=== PATIENT | female | born 1965 | race Caucasian/White ===

== ENCOUNTER → 2017-01-31 | Outpatient (CLI) | payer OTHER ==
[~2017-01-31] MED LIST: ATIVAN0.5 MG PO; EFFEXOR75 MG PO; ULTRAM50 MG PO; VENLAFAXINE HCL75 M3 PO; ZOLPIDEM TARTRA10 MG PO
== END | disposition home or self-care (01) ==
LOC: OPR 09:50 → EDSTATUS 10:00 → OPR 10:00
PROVIDERS: Internal Medicine Hematology & Oncology
PROC: 0DBS3ZX (ICD-10-PCS; principal; 2017-01-31)
DX: C78.6 Secondary malignant neoplasm of retroperitoneum and peritoneum (principal); C34.90 Malignant neoplasm of unspecified part of unspecified bronchus or lung
CPT/HCPCS: 77012; 85610; 85730; 88184 90; 88185 90; 88189 90; 88305; 88341 TC; 88342 TC; J3010

== ENCOUNTER → 2017-03-01 | Outpatient (CLI) | payer OTHER ==
[~2017-03-01] VITALS: Ht 172.7 cm; Wt 60.9 kg
[~2017-03-01] MED LIST changes: +ALIMTA500 MG/20 IV; +PARAPLATIN IV
[2017-03-01 15:36] VITALS: BP 178/85
[2017-03-01 15:38] LABS: HEMATOCRIT 41.3 % (36.0-46.0); MCH 28.2 PG (29.0-34.0); MCHC 32.4 G/DL (30.0-36.0); MCV 86.8 FL (83-99); MEAN PLAT.VOLUME 8.6 uM^3 (9.5-12.4); PLATELET COUNT 461 K/uL (156-360); RBC DIS.WIDTH-CV 12.8 % (11.8-14.6); RBC DIS.WIDTH-SD 40.1 % (39-53); RED BLOOD COUNT 4.76 M/uL (3.80-5.20)
[2017-03-01 15:44] LABS: WHITE BLOOD COUNT 29.5 K/uL (4.1-10.2)
[2017-03-01 15:50] LABS: ANION GAP 11 MEQ/L (2-14); CHLORIDE 99 MEQ/L (99-109); POTASSIUM 3.9 MEQ/L (3.7-5.4); SAMPLE HEMOLYSIS CHECK 0; SAMPLE ICTERIC CHECK 0; SAMPLE LIPEMIA CHECK 0; SODIUM 135 MEQ/L (136-147)
[2017-03-01 15:55] LABS: GFR ESTIMATE (CALCULATED) > 59 mL/min/; GLUCOSE 118 mg/dL (70-99); UREA NITROGEN (BUN) 15 mg/dL (9-23)
[2017-03-01 17:39] VITALS: BP 127/74
== END | disposition home or self-care (01) ==
LOC: IVINF 15:00
PROVIDERS: Internal Medicine
DX: R11.2 Nausea with vomiting, unspecified (principal); Z92.21 Personal history of antineoplastic chemotherapy
CPT/HCPCS: 80048; 85027; 96361; 96375; J2765; J7030

== ENCOUNTER 2017-06-08 15:07 | Emergency (ER) | payer OTHER ==
[~2017-06-08] VITALS: Ht 172.7 cm; Wt 50.4 kg
[~2017-06-08 15:07] MED LIST changes: +COLACE100 MG PO; +COMPAZINE10 MG PO; +CONSTULOSE10 GM/15 M PO; +FOLIC ACID0.8 MG PO; +MS CONTIN,ORAMO30 MG PO; +OMEPRAZOLE20 MG PO; +PERCOCET 5/31 TABLET PO; +REGLAN10 MG PO; +VITAMIN B122500 MCG PO; +[UNRECOGNIZED DRUG - OTHER]
[2017-06-08 15:34] LABS: HEMATOCRIT 39.9 % (36.0-46.0); MCH 29.4 PG (29.0-34.0); MCHC 31.6 G/DL (30.0-36.0); MCV 93.2 FL (83-99); MEAN PLAT.VOLUME 9.1 uM^3 (9.5-12.4); PLATELET COUNT 412 K/uL (156-360); RBC DIS.WIDTH-SD 55.2 % (39-53); RED BLOOD COUNT 4.28 M/uL (3.80-5.20); WHITE BLOOD COUNT 8.7 K/uL (4.1-10.2)
[2017-06-08 15:48] LABS: CHLORIDE 106 mEq/L (99-109); POTASSIUM 3.5 mEq/L (3.7-5.4); SODIUM 140 mEq/L (136-147)
[2017-06-08 15:49] LABS: GLUCOSE 89 mg/dL (70-99)
[2017-06-08 15:51] LABS: ANION GAP 9 MEQ/L (2-14)
[2017-06-08 15:53] LABS: GFR ESTIMATE (CALCULATED) > 59 mL/min/
[2017-06-08 15:54] LABS: TROP-I INTERPRETATION NEGATIVE; TROPONIN-I < 0.01 ng/mL (0.0-0.30); UREA NITROGEN (BUN) 12 mg/dL (9-23)
[2017-06-08 21:30] VITALS: BP 158/103
== END 2017-06-08 21:38 | disposition home or self-care (01) ==
LOC: EME 15:07
DX: C34.90 Malignant neoplasm of unspecified part of unspecified bronchus or lung (principal); C79.51 Secondary malignant neoplasm of bone; R06.02 Shortness of breath; R51 Headache; R53.1 Weakness; R04.0 Epistaxis; R00.0 Tachycardia, unspecified
CPT/HCPCS: 71275; 80048; 84484; 85027; 93005; 99281; 99285; J2270; J7030

== ENCOUNTER 2017-07-07 12:43 | Emergency (ER) | payer OTHER ==
[~2017-07-07] VITALS: Ht 172.7 cm; Wt 49.4 kg
[2017-07-07 14:41] LABS: HEMATOCRIT 37.8 % (36.0-46.0); MCH 29.2 PG (29.0-34.0); MCV 91.3 FL (83-99); MEAN PLAT.VOLUME 9.2 uM^3 (9.5-12.4); PLATELET COUNT 406 K/uL (156-360); RBC DIS.WIDTH-CV 13.2 % (11.8-14.6); RBC DIS.WIDTH-SD 44.8 % (39-53); RED BLOOD COUNT 4.14 M/uL (3.80-5.20); WHITE BLOOD COUNT 9.7 K/uL (4.1-10.2)
[2017-07-07 14:50] LABS: CHLORIDE 106 mEq/L (99-109); POTASSIUM 4.3 mEq/L (3.7-5.4); SODIUM 139 mEq/L (136-147)
[2017-07-07 14:52] LABS: GLUCOSE 97 mg/dL (70-99)
[2017-07-07 14:53] LABS: ANION GAP 10 MEQ/L (2-14)
[2017-07-07 14:55] LABS: GFR ESTIMATE (CALCULATED) > 59 mL/min/
[2017-07-07 14:56] LABS: UREA NITROGEN (BUN) 14 mg/dL (9-23)
[2017-07-07 15:36] LABS: QUANTITATIVE HCG < 4.0 MIU/ML
[2017-07-07 17:40] LABS: ADD MIUA? NO; BILIRUBIN NEGATIVE; BLOOD NEGATIVE; COLOR STRAW ((YELLOW)); GLUCOSE (STRIP) NEGATIVE; KETONES 80; LEUKOCYTES NEGATIVE; NITRITE NEGATIVE; PROTEIN (STRIP) 30; UCUL ADDED? NO; UROBILINOGEN 0.2 MG/DL (0.2-1.0)
[2017-07-07] MEDS ORDERED: REGLAN10 MG PO (18:05)
[2017-07-07 18:47] VITALS: BP 165/98
[2017-07-09] MEDS ORDERED: VENLAFAXINE HCL75 M1 PO (17:39)
[2017-07-09] MEDS ORDERED: ATIVAN0.5 MG PO (17:39)
[2017-07-09] MEDS ORDERED: [UNRECOGNIZED DRUG - OTHER] PO (17:41)
[2017-07-09] MEDS ORDERED: ZOMETA 4 M4 MG/100 M IV (17:44)
[2017-07-09] MEDS ORDERED: TOPROL XL25 MG PO (17:52)
[2017-07-10] MEDS ORDERED: MS CONTIN,ORAMO30 MG PO (16:09)
== END 2017-07-07 18:49 | disposition home or self-care (01) ==
LOC: EME 12:43
PROVIDERS: Emergency Medicine
DX: R11.10 Vomiting, unspecified (principal); C34.90 Malignant neoplasm of unspecified part of unspecified bronchus or lung; C79.9 Secondary malignant neoplasm of unspecified site; Z79.899 Other long term (current) drug therapy
CPT/HCPCS: 74177; 80048; 81003; 84702; 85027; 86850; 86900; 86901; 93005; 99281; 99284; J2270; J2405; J7030

== ENCOUNTER → 2017-07-11 | Outpatient (CLI) | payer OTHER ==
[~2017-07-11] VITALS: Ht 172.7 cm; Wt 49.9 kg
[~2017-07-11] MED LIST changes: +ROXICODONE5 MG PO; +TOPROL XL25 MG PO; +VENLAFAXINE HCL75 M1 PO; +ZOMETA 4 M4 MG/100 M IV; +[UNRECOGNIZED DRUG - OTHER] PO
== END | disposition home or self-care (01) ==
LOC: AMB 12:59
PROC: 0DJ08ZZ Inspection of Upper Intestinal Tract, Via Natural or Artificial Opening Endoscopic (ICD-10-PCS; principal; 2017-07-11)
DX: R11.10 Vomiting, unspecified (principal); C34.90 Malignant neoplasm of unspecified part of unspecified bronchus or lung; C79.9 Secondary malignant neoplasm of unspecified site; Z92.21 Personal history of antineoplastic chemotherapy; I10 Essential (primary) hypertension; K21.9 Gastro-esophageal reflux disease without esophagitis; F41.9 Anxiety disorder, unspecified; F32.9 Major depressive disorder, single episode, unspecified

== ENCOUNTER 2017-07-26 08:43 | Observation (INO) | payer OTHER ==
[~2017-07-26] VITALS: Ht 172.7 cm; Wt 45.7 kg
[~2017-07-26 08:43] MED LIST changes: +ALA-CORT30 GM TP; +ATARAX,VISTARIL25 MG PO; +CEPHALEXIN500 MG PO; +CLINDAGEL40 ML TP; +DOXYCYCLINE HY100 MG PO; +KENALOG,ARISTOC80 GM TP
[2017-07-26 09:42] LABS: HEMATOCRIT 39.8 % (36.0-46.0); MCH 28.1 PG (29.0-34.0); MCHC 32.7 G/DL (30.0-36.0); MCV 86.1 FL (83-99); MEAN PLAT.VOLUME 10.3 uM^3 (9.5-12.4); PLATELET COUNT 459 K/uL (156-360); RBC DIS.WIDTH-CV 13.5 % (11.8-14.6); RBC DIS.WIDTH-SD 42.4 % (39-53); RED BLOOD COUNT 4.62 M/uL (3.80-5.20); WHITE BLOOD COUNT 12.4 K/uL (4.1-10.2)
[2017-07-26 10:29] LABS: ADD MIUA? YES; BILIRUBIN NEGATIVE; BLOOD SMALL; COLOR AMBER ((YELLOW)); GLUCOSE (STRIP) NEGATIVE; KETONES 20; LEUKOCYTES SMALL; NITRITE NEGATIVE; PROTEIN (STRIP) 100; SPECIFIC GRAVITY 1.027 (1.000-1.030)
[2017-07-26 10:35] LABS: CHLORIDE 104 mEq/L (99-109); POTASSIUM 3.7 mEq/L (3.7-5.4); SODIUM 139 mEq/L (136-147)
[2017-07-26 10:37] LABS: GLUCOSE 107 mg/dL (70-99)
[2017-07-26 10:38] LABS: ANION GAP 11 MEQ/L (2-14)
[2017-07-26 10:39] LABS: TOTAL BILIRUBIN 0.3 mg/dL (0.0-1.0)
[2017-07-26 10:40] LABS: ALKALINE PHOSPHATASE 721 IU/L (3-129)
[2017-07-26 10:41] LABS: GFR ESTIMATE (CALCULATED) > 59 mL/min/
[2017-07-26 10:42] LABS: DIRECT BILIRUBIN 0.2 mg/dL (0.0-0.3); UREA NITROGEN (BUN) 17 mg/dL (9-23)
[2017-07-26 10:43] LABS: BACTERIA NONE SEEN /HPF; EPITHELIAL CELLS 1+ /HPF; MUCUS 3+ /LPF; UCUL ADDED? YES; UNCLASSIFIED CRYSTALS 1+ /HPF
[2017-07-26 10:44] LABS: LIPASE 58 U/L (1.0-51.0)
[2017-07-26 12:43] VITALS: BP 177/103
[2017-07-26 20:01] VITALS: BP 145/78
[2017-07-26 21:51] LABS: HEMATOCRIT 33.7 % (36.0-46.0); MCV 89.6 FL (83-99)
[2017-07-27] VITALS (8 sets, daily range): BP systolic 125–162; BP diastolic 74–108
[2017-07-27 05:31] LABS: HEMATOCRIT 33.6 % (36.0-46.0); MCH 28.8 PG (29.0-34.0); MCHC 31.5 G/DL (30.0-36.0); MCV 91.3 FL (83-99); MEAN PLAT.VOLUME 8.8 uM^3 (9.5-12.4); PLATELET COUNT 420 K/uL (156-360); RBC DIS.WIDTH-CV 13.5 % (11.8-14.6); RBC DIS.WIDTH-SD 45.2 % (39-53); WHITE BLOOD COUNT 10.6 K/uL (4.1-10.2)
[2017-07-27 05:58] LABS: ANION GAP 5 MEQ/L (2-14); CHLORIDE 109 MEQ/L (99-109); GFR ESTIMATE (CALCULATED) > 59 mL/min/; GLUCOSE 105 mg/dL (70-99); POTASSIUM 4.1 MEQ/L (3.7-5.4); SAMPLE HEMOLYSIS CHECK 0; SAMPLE ICTERIC CHECK 0; SAMPLE LIPEMIA CHECK 0; SODIUM 140 MEQ/L (136-147); UREA NITROGEN (BUN) 12 mg/dL (9-23)
[2017-07-27 06:18] LABS: RED BLOOD COUNT 3.68 M/uL (3.80-5.20)
[2017-07-28 04:20] VITALS: BP 148/75
[2017-07-28] MEDS ORDERED: PHENERGAN12.5 MG PR (09:46)
[2017-07-28] MEDS ORDERED: BENTYL20 MG PO (09:46)
== END 2017-07-28 12:15 | disposition home or self-care (01) ==
LOC: EME 08:43 → EDOF 11:00 → 5WEST 11:00 → EDOF 11:00 → ENRESERV 11:05 → 5WEST 12:11 → ENPENDDIS 07-28 → 5WEST 07-28 12:15
PROVIDERS: Emergency Medicine; Internal Medicine
DX: E86.0 Dehydration (principal); R11.2 Nausea with vomiting, unspecified; C34.90 Malignant neoplasm of unspecified part of unspecified bronchus or lung; C79.49 Secondary malignant neoplasm of other parts of nervous system; C79.51 Secondary malignant neoplasm of bone; C78.6 Secondary malignant neoplasm of retroperitoneum and peritoneum; L27.0 Generalized skin eruption due to drugs and medicaments taken internally; T45.1X5A Adverse effect of antineoplastic and immunosuppressive drugs, initial encounter; B95.61 Methicillin susceptible Staphylococcus aureus infection as the cause of diseases classified elsewhere; R50.9 Fever, unspecified; Z92.21 Personal history of antineoplastic chemotherapy; N39.0 Urinary tract infection, site not specified; I10 Essential (primary) hypertension; G89.3 Neoplasm related pain (acute) (chronic)
CPT/HCPCS: 80048; 80076; 81003; 83605; 83690; 85014; 85018; 85027; 87040; 87086; 93005; 99281; 99284; C9113; G0378; J0360; J0690; J1170; J1650; J2270; J2405; J2765; J7030; J7050; Q0167; Q0177

== ENCOUNTER 2017-07-29 18:52 | Inpatient (IN) | payer OTHER ==
[~2017-07-29] VITALS: Ht 172.7 cm; Wt 47.9 kg
[~2017-07-29 18:52] MED LIST changes: +BENTYL20 MG PO; +PHENERGAN12.5 MG PR
[2017-07-29 19:32] LABS: HEMATOCRIT 38.2 % (36.0-46.0); MCH 27.3 PG (29.0-34.0); MCHC 31.4 G/DL (30.0-36.0); MCV 86.8 FL (83-99); MEAN PLAT.VOLUME 8.9 uM^3 (9.5-12.4); PLATELET COUNT 561 K/uL (156-360); RBC DIS.WIDTH-CV 13.3 % (11.8-14.6); RBC DIS.WIDTH-SD 42.4 % (39-53); WHITE BLOOD COUNT 11.6 K/uL (4.1-10.2)
[2017-07-29 19:38] LABS: CHLORIDE 101 mEq/L (99-109); POTASSIUM 3.5 mEq/L (3.7-5.4); SODIUM 137 mEq/L (136-147)
[2017-07-29 19:40] LABS: GLUCOSE 107 mg/dL (70-99)
[2017-07-29 19:42] LABS: ANION GAP 11 MEQ/L (2-14)
[2017-07-29 19:44] LABS: ALKALINE PHOSPHATASE 772 IU/L (3-129); GFR ESTIMATE (CALCULATED) > 59 mL/min/
[2017-07-29 19:45] LABS: UREA NITROGEN (BUN) 10 mg/dL (9-23)
[2017-07-29 19:46] LABS: TOTAL BILIRUBIN 0.5 mg/dL (0.0-1.0)
[2017-07-29 19:55] LABS: QUANTITATIVE HCG < 4.0 MIU/ML
[2017-07-29 21:18] LABS: LIPASE 61 U/L (1.0-51.0)
[2017-07-30 00:06] LABS: ADD MIUA? NO; BILIRUBIN NEGATIVE; BLOOD NEGATIVE; COLOR STRAW ((YELLOW)); GLUCOSE (STRIP) NEGATIVE; KETONES 20; LEUKOCYTES NEGATIVE; NITRITE NEGATIVE; PROTEIN (STRIP) NEGATIVE; SPECIFIC GRAVITY 1.031 (1.000-1.030); UCUL ADDED? NO; UROBILINOGEN 0.2 MG/DL (0.2-1.0)
[2017-07-30 01:25] VITALS: BP 184/104
[2017-07-30 04:20] VITALS: BP 168/92
[2017-07-30 05:13] LABS: HEMATOCRIT 31.3 % (36.0-46.0); MCH 28.7 PG (29.0-34.0); MCHC 32.3 G/DL (30.0-36.0); MCV 88.9 FL (83-99); MEAN PLAT.VOLUME 8.7 uM^3 (9.5-12.4); PLATELET COUNT 395 K/uL (156-360); RBC DIS.WIDTH-CV 13.6 % (11.8-14.6); RBC DIS.WIDTH-SD 43.8 % (39-53); RED BLOOD COUNT 3.52 M/uL (3.80-5.20); WHITE BLOOD COUNT 9.9 K/uL (4.1-10.2)
[2017-07-30 06:24] LABS: ALKALINE PHOSPHATASE 570 IU/L (3-129); ANION GAP 9 MEQ/L (2-14); CHLORIDE 101 MEQ/L (99-109); GFR ESTIMATE (CALCULATED) > 59 mL/min/; GLUCOSE 90 mg/dL (70-99); POTASSIUM 3.7 MEQ/L (3.7-5.4); SAMPLE HEMOLYSIS CHECK 0; SAMPLE ICTERIC CHECK 0; SAMPLE LIPEMIA CHECK 0; SODIUM 136 MEQ/L (136-147); TOTAL BILIRUBIN 0.4 MG/DL (0.0-1.0); UREA NITROGEN (BUN) 8 mg/dL (9-23)
[2017-07-30 07:20] VITALS: BP 164/86
[2017-07-30] MEDS ORDERED: DRONABINOL2.5 MG PO (09:48)
[2017-07-30] MEDS ORDERED: ONE DAILY MULT1 EACH PO (09:48)
[2017-07-30] MEDS ORDERED: REGLAN10 MG PO (09:48)
[2017-07-30 11:58] VITALS: BP 183/97
[2017-07-30 12:26] LABS: POINT-OF-CARE METER ID UU14174216
[2017-07-30 15:11] VITALS: BP 167/88
[2017-07-30 19:47] VITALS: BP 154/86
[2017-07-31 00:02] LABS: POINT-OF-CARE METER ID UU13113698
[2017-07-31 00:09] VITALS: BP 152/89
[2017-07-31 03:49] VITALS: BP 162/95
[2017-07-31 05:24] LABS: HEMATOCRIT 30.6 % (36.0-46.0); MCH 28.9 PG (29.0-34.0); MCHC 32.4 G/DL (30.0-36.0); MCV 89.5 FL (83-99); MEAN PLAT.VOLUME 9.1 uM^3 (9.5-12.4); PLATELET COUNT 384 K/uL (156-360); RBC DIS.WIDTH-CV 13.8 % (11.8-14.6); RED BLOOD COUNT 3.42 M/uL (3.80-5.20); WHITE BLOOD COUNT 10.1 K/uL (4.1-10.2)
[2017-07-31 05:52] LABS: ALKALINE PHOSPHATASE 558 IU/L (3-129); ANION GAP 6 MEQ/L (2-14); CHLORIDE 105 MEQ/L (99-109); GFR ESTIMATE (CALCULATED) > 59 mL/min/; GLUCOSE 123 mg/dL (70-99); POTASSIUM 3.3 MEQ/L (3.7-5.4); SAMPLE HEMOLYSIS CHECK 0; SAMPLE ICTERIC CHECK 0; SAMPLE LIPEMIA CHECK 0; SODIUM 137 MEQ/L (136-147); TOTAL BILIRUBIN 0.4 MG/DL (0.0-1.0); UREA NITROGEN (BUN) 6 mg/dL (9-23)
[2017-07-31 06:35] LABS: POINT-OF-CARE METER ID UU14174216
[2017-07-31 08:54] VITALS: BP 169/100
[2017-07-31 12:09] LABS: POINT-OF-CARE METER ID UU14314088
[2017-07-31 12:15] VITALS: BP 168/106
[2017-07-31 15:02] VITALS: BP 170/80
[2017-07-31 20:00] VITALS: BP 170/100
[2017-07-31 21:41] LABS: POINT-OF-CARE METER ID UU13113725
[2017-08-01 00:30] VITALS: BP 140/70
[2017-08-01 04:16] LABS: POINT-OF-CARE METER ID UU13113725
[2017-08-01 04:27] VITALS: BP 126/77
[2017-08-01 07:00] LABS: MCH 27.3 PG (29.0-34.0); MCHC 30.3 G/DL (30.0-36.0); MCV 90.1 FL (83-99); MEAN PLAT.VOLUME 9.4 uM^3 (9.5-12.4); PLATELET COUNT 395 K/uL (156-360); RBC DIS.WIDTH-CV 13.6 % (11.8-14.6); RBC DIS.WIDTH-SD 44.8 % (39-53); RED BLOOD COUNT 3.33 M/uL (3.80-5.20); WHITE BLOOD COUNT 5.7 K/uL (4.1-10.2)
[2017-08-01 07:32] LABS: ALKALINE PHOSPHATASE 522 IU/L (3-129); ANION GAP 6 MEQ/L (2-14); CHLORIDE 105 MEQ/L (99-109); GFR ESTIMATE (CALCULATED) > 59 mL/min/; GLUCOSE 143 mg/dL (70-99); SAMPLE HEMOLYSIS CHECK 0; SAMPLE ICTERIC CHECK 0; SAMPLE LIPEMIA CHECK 0; SODIUM 138 MEQ/L (136-147); UREA NITROGEN (BUN) 7 mg/dL (9-23)
[2017-08-01 07:40] LABS: POTASSIUM 4.5 MEQ/L (3.7-5.4); TOTAL BILIRUBIN 0.3 MG/DL (0.0-1.0)
[2017-08-01 07:53] VITALS: BP 116/70
[2017-08-01 11:28] VITALS: BP 125/80
[2017-08-01 11:45] LABS: POINT-OF-CARE METER ID UU13113774
[2017-08-01 15:46] LABS: POINT-OF-CARE METER ID UU13113774
[2017-08-01 16:26] VITALS: BP 125/79
[2017-08-01 21:43] VITALS: BP 152/84
[2017-08-02] VITALS (8 sets, daily range): BP systolic 124–176; BP diastolic 61–98
[2017-08-02 06:28] LABS: HEMATOCRIT 29.5 % (36.0-46.0); MCH 27.6 PG (29.0-34.0); MCHC 30.2 G/DL (30.0-36.0); MCV 91.6 FL (83-99); MEAN PLAT.VOLUME 9.3 uM^3 (9.5-12.4); PLATELET COUNT 375 K/uL (156-360); RBC DIS.WIDTH-CV 13.7 % (11.8-14.6); RBC DIS.WIDTH-SD 45.9 % (39-53); RED BLOOD COUNT 3.22 M/uL (3.80-5.20); WHITE BLOOD COUNT 6.8 K/uL (4.1-10.2)
[2017-08-02 06:56] LABS: ALKALINE PHOSPHATASE 584 IU/L (3-129); ANION GAP 6 MEQ/L (2-14); CHLORIDE 109 MEQ/L (99-109); GFR ESTIMATE (CALCULATED) > 59 mL/min/; GLUCOSE 135 mg/dL (70-99); POTASSIUM 4.3 MEQ/L (3.7-5.4); SAMPLE HEMOLYSIS CHECK 0; SAMPLE ICTERIC CHECK 0; SAMPLE LIPEMIA CHECK 0; SODIUM 141 MEQ/L (136-147); TOTAL BILIRUBIN 0.3 MG/DL (0.0-1.0); UREA NITROGEN (BUN) 7 mg/dL (9-23)
[2017-08-03 03:00] VITALS: BP 150/90
[2017-08-03 05:51] VITALS: BP 160/84
[2017-08-03 06:23] LABS: HEMATOCRIT 29.5 % (36.0-46.0); MCH 28.4 PG (29.0-34.0); MCHC 31.5 G/DL (30.0-36.0); MCV 90.2 FL (83-99); MEAN PLAT.VOLUME 9.2 uM^3 (9.5-12.4); PLATELET COUNT 353 K/uL (156-360); RBC DIS.WIDTH-CV 13.8 % (11.8-14.6); RBC DIS.WIDTH-SD 45.8 % (39-53); RED BLOOD COUNT 3.27 M/uL (3.80-5.20); WHITE BLOOD COUNT 5.5 K/uL (4.1-10.2)
[2017-08-03 06:50] LABS: ALKALINE PHOSPHATASE 588 IU/L (3-129); ANION GAP 5 MEQ/L (2-14); CHLORIDE 103 MEQ/L (99-109); GFR ESTIMATE (CALCULATED) > 59 mL/min/; GLUCOSE 112 mg/dL (70-99); POTASSIUM 3.9 MEQ/L (3.7-5.4); SAMPLE HEMOLYSIS CHECK 0; SAMPLE ICTERIC CHECK 0; SAMPLE LIPEMIA CHECK 0; SODIUM 137 MEQ/L (136-147); TOTAL BILIRUBIN 0.3 MG/DL (0.0-1.0); UREA NITROGEN (BUN) 3 mg/dL (9-23)
[2017-08-03 07:40] VITALS: BP 141/83
[2017-08-03 08:55] LABS: ADD MIUA? NO; BILIRUBIN NEGATIVE; BLOOD NEGATIVE; COLOR STRAW ((YELLOW)); GLUCOSE (STRIP) NEGATIVE; KETONES NEGATIVE; LEUKOCYTES NEGATIVE; NITRITE NEGATIVE; PROTEIN (STRIP) NEGATIVE; SPECIFIC GRAVITY 1.008 (1.000-1.030); UCUL ADDED? NO; UROBILINOGEN 0.2 MG/DL (0.2-1.0)
[2017-08-03 12:02] VITALS: BP 164/95
[2017-08-03 15:52] VITALS: BP 165/83
[2017-08-03 22:32] VITALS: BP 134/87
[2017-08-04] VITALS (10 sets, daily range): BP systolic 111–166; BP diastolic 62–94
[2017-08-04 06:52] LABS: HEMATOCRIT 29.6 % (36.0-46.0); MCH 28.7 PG (29.0-34.0); MCHC 31.8 G/DL (30.0-36.0); MCV 90.5 FL (83-99); MEAN PLAT.VOLUME 9.1 uM^3 (9.5-12.4); PLATELET COUNT 330 K/uL (156-360); RBC DIS.WIDTH-CV 13.9 % (11.8-14.6); RED BLOOD COUNT 3.27 M/uL (3.80-5.20)
[2017-08-04 07:26] LABS: ALKALINE PHOSPHATASE 573 IU/L (3-129); ANION GAP 4 MEQ/L (2-14); CHLORIDE 102 MEQ/L (99-109); GFR ESTIMATE (CALCULATED) > 59 mL/min/; GLUCOSE 127 mg/dL (70-99); POTASSIUM 4.1 MEQ/L (3.7-5.4); SAMPLE HEMOLYSIS CHECK 0; SAMPLE ICTERIC CHECK 0; SAMPLE LIPEMIA CHECK 0; SODIUM 138 MEQ/L (136-147); UREA NITROGEN (BUN) 3 mg/dL (9-23)
[2017-08-04 07:31] LABS: TOTAL BILIRUBIN 0.4 MG/DL (0.0-1.0)
[2017-08-05 06:55] LABS: HEMATOCRIT 30.6 % (36.0-46.0); MCH 27.5 PG (29.0-34.0); MCHC 30.7 G/DL (30.0-36.0); MCV 89.5 FL (83-99); MEAN PLAT.VOLUME 8.9 uM^3 (9.5-12.4); PLATELET COUNT 358 K/uL (156-360); RBC DIS.WIDTH-CV 13.7 % (11.8-14.6); RBC DIS.WIDTH-SD 44.9 % (39-53); RED BLOOD COUNT 3.42 M/uL (3.80-5.20); WHITE BLOOD COUNT 4.4 K/uL (4.1-10.2)
[2017-08-05 07:25] LABS: ALKALINE PHOSPHATASE 586 IU/L (3-129); AMYLASE 15 IU/L (1-118); ANION GAP 5 MEQ/L (2-14); CHLORIDE 101 MEQ/L (99-109); GFR ESTIMATE (CALCULATED) > 59 mL/min/; GLUCOSE 136 mg/dL (70-99); POTASSIUM 4.7 MEQ/L (3.7-5.4); SAMPLE HEMOLYSIS CHECK 0; SAMPLE ICTERIC CHECK 0; SAMPLE LIPEMIA CHECK 0; SODIUM 134 MEQ/L (136-147); TOTAL BILIRUBIN 0.4 MG/DL (0.0-1.0); UREA NITROGEN (BUN) 4 mg/dL (9-23)
[2017-08-05 08:26] VITALS: BP 139/83
[2017-08-05 16:19] VITALS: BP 137/84
[2017-08-06 01:33] VITALS: BP 1677/88
[2017-08-06 07:19] VITALS: BP 166/86
[2017-08-06 08:46] LABS: HEMATOCRIT 24.8 % (36.0-46.0); MCH 27.6 PG (29.0-34.0); MCHC 30.6 G/DL (30.0-36.0); MCV 90.2 FL (83-99); PLATELET COUNT 291 K/uL (156-360); RBC DIS.WIDTH-CV 13.8 % (11.8-14.6); RBC DIS.WIDTH-SD 44.9 % (39-53); RED BLOOD COUNT 2.75 M/uL (3.80-5.20); WHITE BLOOD COUNT 9.1 K/uL (4.1-10.2)
[2017-08-06 09:19] LABS: ALKALINE PHOSPHATASE 507 IU/L (3-129); ANION GAP 3 MEQ/L (2-14); CHLORIDE 109 MEQ/L (99-109); GFR ESTIMATE (CALCULATED) > 59 mL/min/; GLUCOSE 106 mg/dL (70-99); SAMPLE HEMOLYSIS CHECK 0; SAMPLE ICTERIC CHECK 0; SAMPLE LIPEMIA CHECK 0; SODIUM 136 MEQ/L (136-147); UREA NITROGEN (BUN) 4 mg/dL (9-23)
[2017-08-06 09:20] LABS: POTASSIUM 2.9 MEQ/L (3.7-5.4); TOTAL BILIRUBIN 0.3 MG/DL (0.0-1.0)
[2017-08-06 11:50] LABS: POINT-OF-CARE METER ID UU13113725
[2017-08-06 12:57] VITALS: BP 162/92
[2017-08-06 15:42] VITALS: BP 140/82
[2017-08-06 20:36] VITALS: BP 158/92; BP 18/92
[2017-08-07 01:18] VITALS: BP 170/81
[2017-08-07 04:43] VITALS: BP 166/84
[2017-08-07 06:24] LABS: MCH 27.2 PG (29.0-34.0); MCHC 30.6 G/DL (30.0-36.0); MCV 88.8 FL (83-99); MEAN PLAT.VOLUME 8.9 uM^3 (9.5-12.4); PLATELET COUNT 373 K/uL (156-360); RBC DIS.WIDTH-CV 13.9 % (11.8-14.6); RBC DIS.WIDTH-SD 44.9 % (39-53); WHITE BLOOD COUNT 9.5 K/uL (4.1-10.2)
[2017-08-07 06:40] LABS: RED BLOOD COUNT 3.49 M/uL (3.80-5.20)
[2017-08-07 07:05] LABS: ANION GAP 6 MEQ/L (2-14); CHLORIDE 101 MEQ/L (99-109); GFR ESTIMATE (CALCULATED) > 59 mL/min/; GLUCOSE 117 mg/dL (70-99); SAMPLE HEMOLYSIS CHECK 0; SAMPLE ICTERIC CHECK 0; SAMPLE LIPEMIA CHECK 0; SODIUM 134 MEQ/L (136-147); UREA NITROGEN (BUN) 5 mg/dL (9-23)
[2017-08-07 07:13] LABS: ALKALINE PHOSPHATASE 644 IU/L (3-129); POTASSIUM 4.4 MEQ/L (3.7-5.4); TOTAL BILIRUBIN 0.4 MG/DL (0.0-1.0)
[2017-08-07 07:40] VITALS: BP 176/83
[2017-08-07 11:27] VITALS: BP 150/82
[2017-08-07 15:00] VITALS: BP 143/87
[2017-08-07 20:21] VITALS: BP 170/92
[2017-08-08 04:26] VITALS: BP 140/80
[2017-08-08 06:12] LABS: HEMATOCRIT 29.6 % (36.0-46.0); MCH 26.9 PG (29.0-34.0); MCHC 30.4 G/DL (30.0-36.0); MCV 88.6 FL (83-99); PLATELET COUNT 360 K/uL (156-360); RBC DIS.WIDTH-SD 45.1 % (39-53); RED BLOOD COUNT 3.34 M/uL (3.80-5.20); WHITE BLOOD COUNT 7.5 K/uL (4.1-10.2)
[2017-08-08 06:38] LABS: ALKALINE PHOSPHATASE 778 IU/L (3-129); ANION GAP 9 MEQ/L (2-14); CHLORIDE 102 MEQ/L (99-109); GFR ESTIMATE (CALCULATED) > 59 mL/min/; GLUCOSE 142 mg/dL (70-99); POTASSIUM 4.1 MEQ/L (3.7-5.4); SAMPLE HEMOLYSIS CHECK 0; SAMPLE ICTERIC CHECK 0; SAMPLE LIPEMIA CHECK 0; SODIUM 136 MEQ/L (136-147); TOTAL BILIRUBIN 0.4 MG/DL (0.0-1.0); UREA NITROGEN (BUN) 7 mg/dL (9-23)
[2017-08-08 07:23] VITALS: BP 151/85
[2017-08-08 10:01] VITALS: BP 107/61
[2017-08-08 11:51] VITALS: BP 133/76
[2017-08-08 15:41] VITALS: BP 120/62
[2017-08-08 23:55] VITALS: BP 128/67
[2017-08-09 06:58] LABS: MCH 28.6 PG (29.0-34.0); MCHC 32.1 G/DL (30.0-36.0); MCV 88.9 FL (83-99); MEAN PLAT.VOLUME 9.4 uM^3 (9.5-12.4); PLATELET COUNT 314 K/uL (156-360); RBC DIS.WIDTH-CV 14.5 % (11.8-14.6); RBC DIS.WIDTH-SD 46.8 % (39-53); RED BLOOD COUNT 3.15 M/uL (3.80-5.20); WHITE BLOOD COUNT 5.1 K/uL (4.1-10.2)
[2017-08-09 07:22] VITALS: BP 130/69
[2017-08-09 07:24] LABS: ALKALINE PHOSPHATASE 794 IU/L (3-129); ANION GAP 6 MEQ/L (2-14); CHLORIDE 103 MEQ/L (99-109); GFR ESTIMATE (CALCULATED) > 59 mL/min/; GLUCOSE 127 mg/dL (70-99); POTASSIUM 4.2 MEQ/L (3.7-5.4); SAMPLE HEMOLYSIS CHECK 0; SAMPLE ICTERIC CHECK 0; SAMPLE LIPEMIA CHECK 0; SODIUM 133 MEQ/L (136-147); UREA NITROGEN (BUN) 8 mg/dL (9-23)
[2017-08-09 07:25] LABS: TOTAL BILIRUBIN 0.5 MG/DL (0.0-1.0)
[2017-08-09 16:30] VITALS: BP 117/68
[2017-08-10 00:05] VITALS: BP 131/71
[2017-08-10 06:21] LABS: HEMATOCRIT 28.1 % (36.0-46.0); MCH 27.1 PG (29.0-34.0); MCHC 30.2 G/DL (30.0-36.0); MCV 89.5 FL (83-99); MEAN PLAT.VOLUME 9.4 uM^3 (9.5-12.4); PLATELET COUNT 302 K/uL (156-360); RBC DIS.WIDTH-CV 14.5 % (11.8-14.6); RBC DIS.WIDTH-SD 46.6 % (39-53); RED BLOOD COUNT 3.14 M/uL (3.80-5.20); WHITE BLOOD COUNT 4.7 K/uL (4.1-10.2)
[2017-08-10 06:51] LABS: ALKALINE PHOSPHATASE 708 IU/L (3-129); ANION GAP 5 MEQ/L (2-14); CHLORIDE 104 MEQ/L (99-109); GFR ESTIMATE (CALCULATED) > 59 mL/min/; POTASSIUM 4.1 MEQ/L (3.7-5.4); SAMPLE HEMOLYSIS CHECK 0; SAMPLE ICTERIC CHECK 0; SAMPLE LIPEMIA CHECK 0; SODIUM 134 MEQ/L (136-147); TOTAL BILIRUBIN 0.4 MG/DL (0.0-1.0); UREA NITROGEN (BUN) 7 mg/dL (9-23)
[2017-08-10 06:52] LABS: GLUCOSE 95 mg/dL (70-99)
[2017-08-10 07:38] VITALS: BP 135/84
[2017-08-10 15:39] VITALS: BP 129/78
[2017-08-10 23:28] VITALS: BP 135/92
[2017-08-11] MEDS ORDERED: PROMETHAZINE HC25 M1 PO (06:37)
[2017-08-11] MEDS ORDERED: FENTANYL1 EAC1 TD (06:39)
[2017-08-11] MEDS ORDERED: MORPHINE CON20 MG/M1 SL (06:41)
[2017-08-11] MEDS ORDERED: ONDANSETRON ODT4 MG PO (06:42)
[2017-08-11] MEDS ORDERED: SCOPOLAMINE1 EACH TD (06:43)
[2017-08-11 08:37] VITALS: BP 140/89
[2017-08-11 12:49] VITALS: BP 140/89
== END 2017-08-11 17:16 | disposition home health service (06) | DRG 375 ==
LOC: EME 18:52 → 4EAST 22:56 → EDOF 22:56 → 5EAST 22:56 → ENRESERV 22:58 → 4EAST 07-30 01:19 → ENRESERV 07-31 09:06 → 5EAST 07-31 14:21 → ENPENDDIS 08-11 → 5EAST 08-11 17:16
PROVIDERS: Internal Medicine
DX: C78.6 Secondary malignant neoplasm of retroperitoneum and peritoneum (principal); C79.51 Secondary malignant neoplasm of bone; C79.49 Secondary malignant neoplasm of other parts of nervous system; C34.90 Malignant neoplasm of unspecified part of unspecified bronchus or lung; E87.6 Hypokalemia; E88.09 Other disorders of plasma-protein metabolism, not elsewhere classified; R30.0 Dysuria; R60.0 Localized edema; G89.3 Neoplasm related pain (acute) (chronic); I87.8 Other specified disorders of veins; I10 Essential (primary) hypertension; F32.9 Major depressive disorder, single episode, unspecified; F41.9 Anxiety disorder, unspecified; Z23 Encounter for immunization; Z90.49 Acquired absence of other specified parts of digestive tract; Z90.710 Acquired absence of both cervix and uterus; Z80.0 Family history of malignant neoplasm of digestive organs; Z80.42 Family history of malignant neoplasm of prostate; Z80.51 Family history of malignant neoplasm of kidney; Z82.49 Family history of ischemic heart disease and other diseases of the circulatory system
CPT/HCPCS: 70553; 71010; 71260; 73080; 74000; 74020; 74177; 80048; 80053; 80076; 81003; 82150; 82330; 82948; 83605; 83690; 84702; 85014; 85018; 85027; 87040; 87086; 90686; 93005; 99281; 99284; 99285; C1752; C1894; C9113; G0378; J0360; J0690; J1100; J1170; J1200; J1644; J1650; J2250; J2270; J2405; J2765; J3010; J3480; J7030; J7042; J7050; J9171; Q0167; Q0169; Q0177; S0020

== ENCOUNTER 2017-08-12 20:38 | Observation (INO) | payer OTHER ==
[~2017-08-12] VITALS: Ht 172.7 cm; Wt 47.9 kg
[~2017-08-12 20:38] MED LIST changes: +DRONABINOL2.5 MG PO; +FENTANYL1 EAC1 TD; +MORPHINE CON20 MG/M1 SL; +ONDANSETRON ODT4 MG PO; +ONE DAILY MULT1 EACH PO; +PROMETHAZINE HC25 M1 PO; +SCOPOLAMINE1 EACH TD
[2017-08-12 21:45] LABS: BASE EXCESS 4.5 mEq/L (-3 to +3); BICARBONATE 29.2 mEq/L (22-26); CARBOXY HGB 1.6 % (0-5); METHEMOGLOBIN 0.7 % (0-1.5); PCO2 43 mm Hg (35-45); PO2 76 mm Hg (80-100); pH 7.44 (7.35-7.45)
[2017-08-12 21:46] LABS: COMMENTS - BLOOD GASES C+; DEVICE RA; SITE LR; TOTAL RESP RATE 17 resp/min
[2017-08-12 22:08] LABS: EOSINOPHIL (%) 0.1 % (0-5); HEMATOCRIT 33.2 % (36.0-46.0); IMMATURE GRANULOCYTE (%) 0.9 % (0.0-0.7); IMMATURE GRANULOCYTE COUNT 0.1 K/uL; INSTRUMENT ABS NEUTROPHIL CT 5.8 K/uL; LYMPHOCYTE COUNT 0.4 K/uL (1.0-2.8); MCH 27.7 PG (29.0-34.0); MCHC 31.6 G/DL (30.0-36.0); MCV 87.6 FL (83-99); MEAN PLAT.VOLUME 8.7 uM^3 (9.5-12.4); MONOCYTE (%) 8.6 % (3-12); MONOCYTE COUNT 0.6 K/uL (0-0.8); NEUTROPHIL (%) 84.7 % (45-76); NEUTROPHIL COUNT 5.8 K/uL (1.8-6.4); PLATELET COUNT 359 K/uL (156-360); RBC DIS.WIDTH-SD 44.7 % (39-53); WHITE BLOOD COUNT 6.9 K/uL (4.1-10.2)
[2017-08-12 22:09] LABS: RED BLOOD COUNT 3.79 M/uL (3.80-5.20)
[2017-08-12 22:19] LABS: CHLORIDE 95 mEq/L (99-109); POTASSIUM 4.1 mEq/L (3.7-5.4); SODIUM 132 mEq/L (136-147)
[2017-08-12 22:21] LABS: GLUCOSE 98 mg/dL (70-99)
[2017-08-12 22:22] LABS: ANION GAP 11 MEQ/L (2-14)
[2017-08-12 22:23] LABS: TOTAL BILIRUBIN 0.7 mg/dL (0.0-1.0)
[2017-08-12 22:24] LABS: SERUM ETHYL ALCOHOL < 10 mg/dL
[2017-08-12 22:25] LABS: ALKALINE PHOSPHATASE 800 IU/L (3-129); GFR ESTIMATE (CALCULATED) > 59 mL/min/
[2017-08-12 22:28] LABS: SALICYLATE < 5.0 MG/DL (15-30); UREA NITROGEN (BUN) 25 mg/dL (9-23)
[2017-08-12 22:29] LABS: CREATINE KINASE 58 IU/L (1-294); TOTAL CK 58 IU/L (1-294)
[2017-08-12 22:34] LABS: CK-MB 0.7 ng/mL (0.0-4.9)
[2017-08-13 04:27] VITALS: BP 117/76
[2017-08-13 05:49] LABS: HEMATOCRIT 26.9 % (36.0-46.0); MCH 27.1 PG (29.0-34.0); MCHC 30.5 G/DL (30.0-36.0); MCV 88.8 FL (83-99); MEAN PLAT.VOLUME 8.7 uM^3 (9.5-12.4); PLATELET COUNT 279 K/uL (156-360); RBC DIS.WIDTH-CV 14.1 % (11.8-14.6); RBC DIS.WIDTH-SD 45.8 % (39-53); WHITE BLOOD COUNT 3.6 K/uL (4.1-10.2)
[2017-08-13 05:52] LABS: RED BLOOD COUNT 3.03 M/uL (3.80-5.20)
[2017-08-13 06:07] LABS: ALKALINE PHOSPHATASE 608 IU/L (3-129); ANION GAP 7 MEQ/L (2-14); CHLORIDE 101 MEQ/L (99-109); GFR ESTIMATE (CALCULATED) > 59 mL/min/; GLUCOSE 81 mg/dL (70-99); POTASSIUM 3.9 MEQ/L (3.7-5.4); SAMPLE HEMOLYSIS CHECK 0; SAMPLE ICTERIC CHECK 0; SAMPLE LIPEMIA CHECK 0; SODIUM 133 MEQ/L (136-147); UREA NITROGEN (BUN) 20 mg/dL (9-23)
[2017-08-13 06:09] LABS: TOTAL BILIRUBIN 0.5 MG/DL (0.0-1.0)
[2017-08-13 07:50] VITALS: BP 138/74
[2017-08-13 12:28] VITALS: BP 134/86
[2017-08-13 15:52] VITALS: BP 147/85
[2017-08-13 19:20] VITALS: BP 139/77
[2017-08-14 00:16] VITALS: BP 141/91
[2017-08-14 03:55] VITALS: BP 176/104
[2017-08-14 05:11] LABS: EOSINOPHIL (%) 0 % (0-5); HEMATOCRIT 27.9 % (36.0-46.0); IMMATURE GRANULOCYTE (%) 0.6 % (0.0-0.7); INSTRUMENT ABS NEUTROPHIL CT 3.9 K/uL; LYMPHOCYTE COUNT 0.2 K/uL (1.0-2.8); MCH 27.2 PG (29.0-34.0); MCHC 31.9 G/DL (30.0-36.0); MCV 85.3 FL (83-99); MEAN PLAT.VOLUME 8.6 uM^3 (9.5-12.4); MONOCYTE (%) 11.8 % (3-12); MONOCYTE COUNT 0.6 K/uL (0-0.8); NEUTROPHIL (%) 84.2 % (45-76); NEUTROPHIL COUNT 3.9 K/uL (1.8-6.4); PLATELET COUNT 308 K/uL (156-360); RBC DIS.WIDTH-CV 13.7 % (11.8-14.6); RBC DIS.WIDTH-SD 42.8 % (39-53); RED BLOOD COUNT 3.27 M/uL (3.80-5.20); WHITE BLOOD COUNT 4.7 K/uL (4.1-10.2)
[2017-08-14 05:41] LABS: ALKALINE PHOSPHATASE 697 IU/L (3-129); ANION GAP 8 MEQ/L (2-14); CHLORIDE 97 MEQ/L (99-109); GFR ESTIMATE (CALCULATED) > 59 mL/min/; SAMPLE HEMOLYSIS CHECK 0; SAMPLE ICTERIC CHECK 0; SAMPLE LIPEMIA CHECK 0; SODIUM 131 MEQ/L (136-147); TOTAL BILIRUBIN 0.5 MG/DL (0.0-1.0); UREA NITROGEN (BUN) 9 mg/dL (9-23)
[2017-08-14 05:42] LABS: GLUCOSE 140 mg/dL (70-99); POTASSIUM 3.1 MEQ/L (3.7-5.4)
[2017-08-14 07:38] VITALS: BP 134/77
[2017-08-14 10:26] LABS: MAGNESIUM 1.6 mg/dl (1.3-2.7)
[2017-08-14 10:41] VITALS: BP 135/78
== END 2017-08-14 15:54 | disposition home or self-care (01) ==
LOC: EME 20:38 → EDOF 08-13 00:31 → 5WEST 08-13 00:31 → EDOF 08-13 00:31 → ENRESERV 08-13 00:39 → 5WEST 08-13 02:10
PROVIDERS: Emergency Medicine; Hospitalist
DX: G93.41 Metabolic encephalopathy (principal); C34.90 Malignant neoplasm of unspecified part of unspecified bronchus or lung; C79.51 Secondary malignant neoplasm of bone; G25.3 Myoclonus; I10 Essential (primary) hypertension; K56.600 Partial intestinal obstruction, unspecified as to cause; R10.9 Unspecified abdominal pain; R13.10 Dysphagia, unspecified; Z80.0 Family history of malignant neoplasm of digestive organs; Z80.51 Family history of malignant neoplasm of kidney
CPT/HCPCS: 36600; 70450; 74000; 74230; 80053; 81003; 82550; 82553; 82803; 83605; 83735; 85025; 85027; 92610 GN; 92611 GN; 99281; 99285; G0378; G0480; G8996 GN CI; G8997 GN CH; J0360; J1644; J1885; J2405; J7030; Q0167